=== PATIENT | female | born 1980 | race Caucasian/White ===

== ENCOUNTER 2021-01-31 10:56 | Day surgery (SDC) | payer OTHER ==
[~2021-01-31] VITALS: Ht 157.5 cm; Wt 54.5 kg
[~2021-01-31 10:56] MED LIST: AMBIEN10 MG PO; BUSPIRONE HCL10 MG PO; CIPRO500 MG PO; GABAPENTIN300 MG PO; WELLBUTRIN SR100 MG PO
--- NOTE | 2021-01-31 12:15 | NUR ---
01/31/21 1215 [address] 1205 PATIENT ARRIVES TO PACU AWAKE BUT VERY DROWSY. RESP EVEN AND UNLABORED, ROOM AIR SATS 100%. PATIENT C/O LEFT EYE WATERING. TISSUES AND COLD RAG GIVEN. 1210 PATIENT CONTINUES TO BE AWAKE, LESS DROWSY. CONTINUES TO C/O LEFT EYE WATERY. RUBBING AT EYE. LEFT EYE FLUSHED WITH SALINE. ENCOURAGED PATIENT NOT TO RUB EYES.
--- NOTE | 2021-02-01 13:17 | OR ---
[facility] [address] [place], [place] [address] Signed DATE OF OPERATION: 01/31/2021 SURGEON: Rina Bell MD PREOPERATIVE DIAGNOSES: 1. Recent episode of marked distention of stomach and small bowel without associated nausea or vomiting. 2. Chronic anxiety. 3. Possible irritable bowel syndrome. POSTOPERATIVE DIAGNOSIS: Normal colon and ilium. PROCEDURE: Total colonoscopy to cecum with intubation of ileum, biopsy of ileum, cecum and rectum. ANESTHESIA: Intravenous sedation, propofol infusion. Gurmeet Bradford CRNA. INDICATIONS: This 40-year-old white woman is a patient of PROSPER Foote and is referred for consideration of recent abnormal CT scan of the abdomen. Approximately three weeks ago, she had symptoms suggestive of a urinary tract infection with abdominal pain and cramps. Urinalysis was abnormal. She was treated for presumptive urinary tract infection. Left-sided abdominal pain was noted as well. This was January 10, 2021. Her urinalysis did show blood as well as elevated white count consistent with urinary tract infection. An abdominal CT scan was performed on January 11, 2021 to assess for nephrolithiasis. There was no evidence of hydronephrosis or stone, but a considerable amount of enteric bowel loop distention filled with fluid as well as the stomach, which was quite markedly dilated and filled with fluid. The colon itself was reasonably normal. Consideration was made, this represented an enteritis or possibly ileus. There is no specific finding of obstruction. The colon was relatively normal. I have seen her and most of her symptoms have resolved. As it turns out, she has considerable ongoing anxiety, which is treated, but exacerbated from time to time for which she does have some gastrointestinal symptoms including pain and occasions of diarrhea alternating with constipation. Clinical diagnosis of probable irritable bowel syndrome is made on that basis. I have recommended colonoscopy to assure that there is no evidence of ileal obstruction or findings of inflammatory bowel disease. The risks of bleeding, infection, and perforation were reviewed with her in detail. She Electronically Signed By: RINA BELL MD 02/01/21 1317 PATIENT NAME: TASHA SR OPERATIVE REPORT DATE OF : [birth year] REPORT #: [id number] PHYSICIAN: RINA BELL MD PCP: DEEPAK FALLON PAC REPORT IS CONFIDENTIAL AND NOT TO BE RELEASED WITHOUT AUTHORIZATION [facility] [address] [place], [place] [address] Signed understands and wished to proceed. Of note, she has had no COVID infection and preoperative COVID testing is negative. FINDINGS: The prep was excellent. Complete colonoscopy was undertaken to the cecum without question. Brief intubation of the ileum showed no sign of stricture or inflammatory change. A biopsy of the ileum and cecum and rectum was performed. The remaining colon was normal as was the rectum. DESCRIPTION OF PROCEDURE: The patient was brought to the endoscopy suite and placed in lateral decubitus position. Given her medication profile, anxiety, and so forth, propofol infusional anesthesia was given by the costume specialist. A digital rectal examination was found to be normal. An Olympus video colonoscope was passed in the rectum and manipulated throughout the colon ultimately intubating the cecum itself. The ileocecal valve and appendiceal orifice were normal. With various manipulations, the ileocecal valve was intubated. Passage very far was not forthcoming, biopsies were ultimately obtained and although limited in amount were sufficient. The ileal mucosa was normal. The scope was withdrawn and biopsies taken of the cecum, though it appeared normal as well. Careful withdrawal of scope showed no sign of specific abnormality. The biopsies taken of the rectum to assess for occult colitis. The scope was removed and the patient was taken to the recovery room in good condition. CONCLUDING DIAGNOSIS: Normal colon and ileum. PLAN: I have reviewed with the patient a low FODMAP diet, which she will initiate. We will see patient back in 6-8 weeks, sooner if symptoms should recur. MD LUANNE Eid/MODL /[id number] Electronically Signed By: RINA BELL MD 02/01/21 1317 PATIENT NAME: TASHA SR OPERATIVE REPORT DATE OF : [birth year] REPORT #: [id number] PHYSICIAN: RINA BELL MD PCP: DEEPAK FALLON PAC REPORT IS CONFIDENTIAL AND NOT TO BE RELEASED WITHOUT AUTHORIZATION [facility] [address] [facility] [place] [address] Signed cc: PROSPER Fotoe Copies: ~ Electronically Signed By: RINA BELL MD 02/01/21 1317 PATIENT NAME: ORINTASHA ANN OPERATIVE REPORT DATE OF : [birth year] REPORT #: [id number] PHYSICIAN: RINA BELL MD PCP: DEEPAK FALLON PAC REPORT IS CONFIDENTIAL AND NOT TO BE RELEASED WITHOUT AUTHORIZATION
--- NOTE | 2021-02-02 12:24 | PATH ---
[facility] [address] [place], [place] [address] Signed SPECIMEN(S): A CECUM BIOPSY SPECIMEN(S): B TERMINAL ILEUM BIOPSY SPECIMEN(S): C RECTUM BIOPSY SPECIMEN SOURCE: A. CECUM BIOPSY B. TERMINAL ILEUM BIOPSY C. RECTUM BIOPSY CLINICAL HISTORY: History of enteritis of small intestine, chronic diarrhea. Postop Dx: Normal MICROSCOPIC DESCRIPTION: Histologic sections of all submitted blocks are examined by light microscopy. These findings, together with the gross examination, support the pathologic diagnosis. FINAL PATHOLOGIC DIAGNOSIS: A. Colon, cecum, biopsy: - Colonic mucosa with no histopathologic abnormality. - Negative for active, chronic or microscopic colitis. - Negative for dysplasia or malignancy. B. Terminal ileum, biopsy: - Ileal mucosa with no histopathologic abnormality. - Negative for active inflammation or granulomas. - Negative for dysplasia or malignancy. C. Rectum, biopsy: - Rectal mucosa with no histopathologic abnormality. - Negative for active or chronic proctitis. - Negative for dysplasia or malignancy. NAL:cml:C2NR GROSS DESCRIPTION: Three specimens are received in three containers, labeled "Juan Yuliya." A. The specimen, labeled "Homar Martinezth, #1," and designated on the requisition "cecum biopsy," is received in formalin and consists of two richardson soft tissue fragment(s) that measure 0.1 and 0.4 cm in greatest dimension. The specimen is entirely submitted in cassette (A1). B. The specimen, labeled "Yuliya Martinez, #2," and designated on the requisition "terminal ileum biopsy," is received in formalin and consists of one richardson soft tissue fragment(s) that measure 0.3 cm in greatest dimension. The specimen is entirely submitted in cassette (B1). PATIENT NAME: YULIYA MARTINEZ PATHOLOGY DATE OF : 82 REPORT #: [id number] PHYSICIAN: NADIRA NASSAR PCP: DEEPAK FALLON PAC REPORT IS CONFIDENTIAL AND NOT TO BE RELEASED WITHOUT AUTHORIZATION [facility] [address] [place], [place] [address] Signed C. The specimen, labeled "Yuliya Martinez, #3," and designated on the requisition "rectum biopsy," is received in formalin and consists of three richardson soft tissue fragment(s) that measure 0.2-0.3 cm in greatest dimension. The specimen is entirely submitted in cassette (C1). FB (under the direct supervision of a pathologist) The Gross Description was prepared using a voice recognition system. The report was reviewed for accuracy; however, sound-alike word errors, addition and/or deletions may occur. If there is any question about this report, please contact Client Services. PERFORMING LABORATORY: The technical component was performed by [facility], [address] [place] [address] (Gaming Investigator: Cheri Philip MD; CLIA# [id number]). [facility], [address] [place] [address] (CLIA# [id number]). Diagnostician: Wendy Angel MD Pathologist Electronically Signed 02/02/2021 Copies: ~ PATIENT NAME: YULIYA MARTINEZ TRINI PATHOLOGY DATE OF : 82 REPORT #: [id number] PHYSICIAN: NADIRA PATHOLOGY PCP: DEEPAK FALLON PAC REPORT IS CONFIDENTIAL AND NOT TO BE RELEASED WITHOUT AUTHORIZATION
== END 2021-01-31 12:55 | disposition home or self-care (01) ==
LOC: OPS 10:56 → DS 11:15 → OPS 12:00 → DS 12:00 → OPS 12:55
PROVIDERS: ATTEND Surgery
PROC: 0DBP8ZX Excision of Rectum, Via Natural or Artificial Opening Endoscopic, Diagnostic (ICD-10-PCS; 2021-01-31)
PROC: 0DBB8ZX Excision of Ileum, Via Natural or Artificial Opening Endoscopic, Diagnostic (ICD-10-PCS; 2021-01-31)
PROC: 0DBH8ZX Excision of Cecum, Via Natural or Artificial Opening Endoscopic, Diagnostic (ICD-10-PCS; principal; 2021-01-31 12:00)
DX: K63.89 Other specified diseases of intestine (principal); K31.89 Other diseases of stomach and duodenum; F41.1 Generalized anxiety disorder; G47.00 Insomnia, unspecified
CPT/HCPCS: 00790; J7121

== ENCOUNTER 2021-04-07 06:30 | Day surgery (SDC) | payer OTHER ==
[~2021-04-07] VITALS: Ht 157.5 cm; Wt 54.5 kg
--- NOTE | 2021-04-07 08:35 | NUR ---
04/07/21 0835 Mary,Indy 0872 PT ARRIVED TO PACU ON 8L VIA MASK, RESP EVEN AND UNLABORED. VSS. PT NONAROUSABLE WITH ORAL AIRWAY IN PLACE.
[2021-04-07] MEDS ORDERED: IBUPROFEN600 MG PO (08:58)
[2021-04-07] MEDS ORDERED: ACETAMINOPHEN500 MG PO (08:59)
[2021-04-07] MEDS ORDERED: OXYCODON-ACETA1 EAC2 PO (08:59)
--- NOTE | 2021-04-07 12:01 | NUR ---
PT ALERT, ORIENTED AND WILL RETURN AFTER KIDS OFF TO SCHOOL. PT WAITING TO VISIT WITH DR BELL, SEEMS TO BE DEALING APPROPRIATELY WITH TODAY. ALL QUESTIONS ASKED ANSWERED. PT REQUESTED PRAYER, WILL FOLLOW
--- NOTE | 2021-04-09 11:25 | OR ---
[facility] [address] [place], [place] [address] Signed DATE OF OPERATION: 04/07/2021 SURGEON: Rina Bell MD PREOPERATIVE DIAGNOSES: 1. Symptomatic right infrascapular soft tissue mass, probable lipoma. 2. Symptomatic right lateral chest wall soft tissue mass, probable lipoma. POSTOPERATIVE DIAGNOSES: 1. Submuscular (trapezius) soft tissue mass inferior to the tip of scapula consistent with lipoma 8 cm in size. 2. Right subfascial lateral chest wall lipomatous mass. PROCEDURES: 1. Excision of submuscular and intermuscular soft tissue mass, right posterior thorax. 2. Excision of subfascial soft tissue mass, right lateral chest wall. ANESTHESIA: General, LMA, Gurmeet Sanchez, DRYWALLER and local 20 mL of 0.25% Marcaine with epinephrine. INDICATIONS: This 40-year-old white woman is a patient of PROSPER Castañeda, and known to me from the past for treatment of probable irritable bowel syndrome. She has noticed a soft tissue mass inferior to the right scapular area, which was flat and relatively large and increasingly uncomfortable for her. It was clinically suggestive of a submuscular lipoma. In addition, she has a left lateral abdominal wall soft tissue mass consistent with a lipoma and as outlined today prior to operation, a right lateral chest wall subcutaneous mass also consistent with lipoma. She is admitted at this time to undergo excision of the right posterior and rioght lateral thoracic soft tissue masses. She understands the risks of bleeding, infection, cosmetic deformity, recurrence, and need for additional treatment should malignancy be found. She understands and she wished to proceed. As regard to the abdominal wall mass on the right side, she is not inclined to excision of that today. FINDINGS: Both masses were consistent with benign lipomatous masses. Both were excised completely. The right lateral chest wall mass was a subfascial lesion approximately 3 cm in size. The posterior thoracic lesion inferior to the scapular tip was a submuscular (trapezius) lipomatous mass intercolated between the trapezius and Electronically Signed By: RINA BELL MD 04/09/21 1125 PATIENT NAME: TASHA SR OPERATIVE REPORT DATE OF : [birth year] REPORT #: [id number] PHYSICIAN: RINA BELL MD PCP: DEEPAK FALLON PAC REPORT IS CONFIDENTIAL AND NOT TO BE RELEASED WITHOUT AUTHORIZATION [facility] [address] [place], [place] [address] Signed latissimus dorsi muscle. Complete excision was accomplished. DESCRIPTION OF PROCEDURE: The patient was brought to the operating room, given a general LMA type anesthetic and placed in lateral decubitus position with right side up. Shoulder roll was placed. Appropriate padding of all pressure points was undertaken including between the legs and arms and so on. The previously marked lesions were prepared with a chlorhexidine solution in continuity. Skin lines of tension over the right lateral chest wall lesion was transversely oriented and a #15 blade was used to incise the skin and subcutaneous tissue. Using blunt dissection with a hemostat, the subfascial layer was identified, ultimately identifying what was most likely a smooth, well-formed lipomatous mass down to the chest wall itself. This was carefully dissected free mostly with electrocautery. Hemostasis was assured with electrocautery. A 3 mL of 0.25% Marcaine with epinephrine injected locally. The deep dermal layer was reapproximated with interrupted 2-0 Vicryl and skin closed with a running subcuticular 3-0 Vicryl. Attention was turned to the posterior thoracic soft tissue mass, this was quite a bit larger. Orientation of the incision was based on skin line tension essentially vertically oriented in this area. An incision was made with a 15 blade. Dissection carried through the dermis and subcutaneous tissue. Electrocautery was used for hemostasis. Further dissection was undertaken showing that the mass was a lipomatous one and blunt and electrocautery dissection surrounding it was undertaken. It was found to emanate between the trapezius muscle and the latissimus dorsi muscle. Extreme care was taken to excise it fully between these two muscles leading no remnant. Incision used was quite a bit smaller than the actual lesion excised. Photographs were taken. The excised lesion was multi-lobulated fatty tissue consistent with lipoma. It measured approximately 8-9 cm. Hemostasis was assured with electrocautery. Irrigation was undertaken. A 15 mL of 0.25% Marcaine with epinephrine injected locally. The wound was closed with interrupted 2-0 Vicryl in a running subcuticular and 3-0 Vicryl for the skin. Steri-Strips were applied to both sites. Acticoat dressings were then applied. She was returned to the supine position, ultimately extubated and transferred to recovery room in good condition and having suffered no complication. Sponge, needle, and instrument counts reported as correct x3. Rina Bell MD Electronically Signed By: RINA BELL MD 04/09/21 1125 PATIENT NAME: TASHA SR TRINI OPERATIVE REPORT DATE OF : [birth year] REPORT #: [id number] PHYSICIAN: RINA BELL MD PCP: DEEPAK FALLON PAC REPORT IS CONFIDENTIAL AND NOT TO BE RELEASED WITHOUT AUTHORIZATION [facility] [address] [place] [address] Signed /[facility] /[id number] Copies: ~ Electronically Signed By: RINA BELL MD 04/09/21 1125 PATIENT NAME: TASHA SR TRINI OPERATIVE REPORT DATE OF : 82 REPORT #: [id number] PHYSICIAN: RINA BELL MD PCP: DEEPAK FALLON PAC REPORT IS CONFIDENTIAL AND NOT TO BE RELEASED WITHOUT AUTHORIZATION
== END 2021-04-07 10:10 | disposition home or self-care (01) ==
LOC: DS 06:30 → MS 06:45 → DS 10:10 → MS 11:00 → EDSTATUS 11:00 → DS 11:00
PROVIDERS: ATTEND Surgery
PROC: 0KBF0ZZ Excision of Right Trunk Muscle, Open Approach (ICD-10-PCS; 2021-04-07)
PROC: 0JB63ZZ Excision of Chest Subcutaneous Tissue and Fascia, Percutaneous Approach (ICD-10-PCS; principal; 2021-04-07 06:45)
DX: R22.2 Localized swelling, mass and lump, trunk (principal); D21.3 Benign neoplasm of connective and other soft tissue of thorax; Z88.1 Allergy status to other antibiotic agents; Z88.0 Allergy status to penicillin
CPT/HCPCS: 00400; J1100; J1644; J1885; J2001; J2405; J2704; J3010; J7121

== ENCOUNTER 2021-08-15 05:47 | Day surgery (SDC) | payer OTHER ==
[~2021-08-15] VITALS: Ht 157.5 cm; Wt 58.1 kg
--- NOTE | ~2021-08-15 | OR ---
[facility] [address] [place], [place] [address] Draft DATE OF OPERATION: 08/15/2021 SURGEON: Elma Almeida DO PREOPERATIVE DIAGNOSES: 1. CIN3 with positive margins. 2. Adenomyosis. POSTOPERATIVE DIAGNOSES: 1. CIN3. 2. Adenomyosis. PROCEDURES PERFORMED: 1. Total laparoscopic hysterectomy. 2. Bilateral salpingectomy. 3. Cystoscopy. BEHAVIORAL SPECIALIST: Peter Wallace MD. ANESTHESIA: General. ESTIMATED BLOOD LOSS: 35 mL. SPECIMEN: Uterus, cervix, and bilateral fallopian tubes. DRAINS: Corcoran to gravity. FINDINGS: Normal external genitalia with normal clitoris, urethral meatus, bilateral Cecilia's, and Bartholin's. Enlarged cervix with scarring consistent with prior LEEP and no cervical masses noted. Normal uterus, tubes, and ovaries on laparoscopy with normal liver and gallbladder noted. On cystoscopy, normal bladder and bilateral ureteral jets. Good apical support. Hemostasis at the end of the procedure. Of note, the urine was noted to be quite turbid at the beginning of the case. PATIENT NAME: TASHA MARTINEZ OPERATIVE REPORT DATE OF : 82 REPORT #: [id number] PHYSICIAN: ELMA ALMEIDA DO PCP: DEEPAK FALLON PAC REPORT IS CONFIDENTIAL AND NOT TO BE RELEASED WITHOUT AUTHORIZATION [address] [address] [place] COMPLICATIONS: None. INDICATIONS: Ms. Martinez is a very pleasant 41-year-old G5, P3 female with a history of cervical dysplasia. She underwent a LEEP for CIN3 that demonstrated positive endocervical margins both on LEEP and top-hat portions of the biopsy. ECC was negative. She has a history of adenomyosis and has completed childbearing. She reports significant anxiety and PTSD type symptoms regarding colposcopy and LEEP and is requesting definitive treatment of cervical dysplasia with total laparoscopic hysterectomy, bilateral salpingectomy and cystoscopy. Risks, benefits, and alternatives were discussed in detail with the patient. The patient understands and wished to proceed with the procedure. TECHNIQUE: The patient was taken to the operating room where a time-out was performed to confirm correct patient, correct procedure. General anesthesia was adequately established. The patient was prepped and draped in dorsal lithotomy position with her feet in Yellofin stirrups. ICPs were on and running and no preoperative heparin was indicated based on her preemie score. The patient received clindamycin and aztreonam preoperatively per SCIP protocol due to her allergy history. A weighted speculum was placed in the vagina and the anterior lip of the cervix was grasped with an Allis clamp. The cervix was serially dilated using Hegar dilators and a VCare uterine manipulator was placed. Corcoran catheter was inserted and the surgeon's gloves were changed. Attention was turned to the abdomen. The base of the umbilicus was infiltrated with 0.25% Marcaine with epinephrine and a 5 mm stab incision was made using 11 blade. A 5 mm port was then placed under direct visualization without difficulty and pneumoperitoneum was established with low opening pressures. Survey of the abdomen and pelvis was performed that demonstrates normal right upper quadrant, normal uterus, bilateral tubes and ovaries. A 5 mm assist port was then placed in left lower quadrant under direct visualization and a 10 mm assist port was placed in the right lower quadrant under direct visualization. The left fallopian tube was grasped at the fimbriated end and divided along the mesosalpinx using LigaSure device. The fallopian tube was then delivered through the and sent to pathology for further evaluation. The left uteroovarian ligament was fulgurated and divided. The right fallopian tube was then divided along the mesosalpinx using the LigaSure device and sent to pathology. The right utero-ovarian ligament was then fulgurated and divided. The left round ligament was fulgurated and divided and the leaves of the broad ligament were divided. The anterior leaf was carried down to the vaginal cup and the bladder dissected well below the vaginal cup. The posterior leaf was carried down to the angle of the uterosacral ligament across the posterior edge of the vaginal cup. The uterine vessels were identified, fulgurated and divided with excellent hemostasis. The process was repeated PATIENT NAME: TASHA MARTINEZ OPERATIVE REPORT DATE OF : 82 REPORT #: [id number] PHYSICIAN: ELMA ALMEIDA DO PCP: DEEPAK FALLON PAC REPORT IS CONFIDENTIAL AND NOT TO BE RELEASED WITHOUT AUTHORIZATION [facility] [address] [place] [id number] [place] on the right with fulguration division of the round ligament, leaves of the broad ligament and uterine vessels with excellent hemostasis appreciated. Sonicision device was selected and colpotomy was performed in a circumferential manner around the of the green vaginal cup with excellent hemostasis. The uterus and cervix were then delivered through the vagina and a wet lap stuffed inside a glove was placed inside the vagina to maintain pneumoperitoneum. The pelvis was irrigated and found to be hemostatic. Colpotomy was then closed using Endostitch device with V-Loc suture with careful attention to incorporate the uterosacral ligaments bilaterally and the vaginal epithelium with each bite. Once colpotomy was closed, excellent hemostasis and apical support were appreciated. The pelvis was again irrigated and found to be hemostatic. Tisseel was applied to the raw edges of the pedicle sites again with excellent hemostasis. The 10 mm assist port was then removed and fascia was closed using Morro-Edouard device with excellent reapproximation of the fascia. Pneumoperitoneum was then reduced and trocars were removed. Trocar sites were repaired using 4-0 Monocryl in subcuticular stitch with excellent hemostasis cosmesis. Attention was then turned to cystoscopy. The Corcoran catheter was removed and a 70-degree cystoscope was then placed in the urethral meatus and advanced under direct visualization to the bladder. The bladder was filled and normal bladder dome and bladder epithelium was appreciated. Bilateral ureteral jets were appreciated. Bladder was drained. Corcoran catheter was reinserted and the patient was taken to PACU in good and stable condition. Sponge, needle, and instrument counts were correct x2 at the end of the procedure. Dr. Wallace was present and participated in all portions of the procedure. DO ALESHIA Conley/AMADOU /[id number] Copies: ~ PATIENT NAME: TASHA MARTINEZ OPERATIVE REPORT DATE OF : [birth year] REPORT #: [id number] PHYSICIAN: ELMA ALMEIDA DO PCP: DEEPAK FALLON PAC REPORT IS CONFIDENTIAL AND NOT TO BE RELEASED WITHOUT AUTHORIZATION
[~2021-08-15 05:47] MED LIST changes: +ACETAMINOPHEN500 MG PO; +IBUPROFEN600 MG PO; +OXYCODON-ACETA1 EAC2 PO; +VITAMIN B-1250 MCG PO; +VITAMIN B122500 MCG PO
[2021-08-15] MEDS ORDERED: MULTI-VITAMIN1 EACH PO (06:07)
--- NOTE | 2021-08-15 09:04 | NUR ---
08/15/21 0904 Alise Juarez 0853-PT TO PACU IN SUPINE POSITION. EYES CLOSED WITH ORAL AIRWAY IN PLACE. BREATHING EASY AND UNLABORED. SPO2 >95% ON 6 L O2 VIA SIMPLE MASK. 0856- PT RESPONDS TO VERBAL AND TACTILE SIMULI. OPENS EYES AND FOLLOWS COMMANDS. ORAL AIRWAY REMOVED. BREATHING EASY AND UNLABORED. SPO2 >95% ON 6 L O2 VIA SIMPLE MASK. O2 TITRATED DOWN TO ROOM AIR. PT SHAKES HEAD "NO" WHEN ASKED ABOUT PAIN. 0904- PT AWAKENS SPONTANEOUSLY, BUT REMAINS DROWSY. PT ASKING ABOUT SPOUCE AND PROCEDURE. BREATHING EASY AND UNLABORED. SPO2 >95% ON ROOM AIR.
--- NOTE | 2021-08-15 09:44 | NUR ---
0930: PT RETURNS TO UNIT VIA STRETCHER FROM PACU, DROWSY AND TEARFUL ON ARRIVAL. ATTENTIVE AT THE BEDSIDE. VSS, RESP EVEN AND UNLABORED. PT REPORTING VENKATESH 3/10 PAIN LEVEL AT THIS TIME, DISCUSSED PAIN CONTROL AND PT VOICES UNDERSTANDING. TO TRY WATER AND CRACKERS SHORTLY. DENIES NAUSEA. DRESSINGS X3 C/D/I. ROSAS DRAINS CLOUDY YELLOW URINE AT THE BEDSIDE. SCDS INPLACE. POC DISCUSSED AND PT AGREEABLE. MORRISON, DO TO COME DISCUSS PROCEDURE WITH PT AND PT'S PRIOR TO DC. NO NEEDS VOICED, CALL LIGHT WITHIN REACH 1000: TC PLACED TO MORRISON, DO. NEW ORDER RECEIVED FOR URINE CULTURE. TC PLACED TO LAB AND ACCURACY OF CULTURE WITH THE PRESENCE OF FLUORESCENE CONFIRMED. THIS RN TO SEND CULTURE WHEN AVAILABLE.
--- NOTE | 2021-08-15 10:16 | NUR ---
1010/PT IS ALERT AND ORIENTED. PT IS TEARFUL. VOICED NEED FOR MORE TISSUE. DICUSSED NEED FOR COMFORT. OFFERED BY THIS STUDENT NURSE. PT DECLINES DESIRE TO VOICE FEELINGS AT THIS TIME. CALL LIGHT WITHIN REACH AND REMAINS AT BEDSIDE.
--- NOTE | 2021-08-15 10:59 | NUR ---
1050/PT IS AWAKE AND ORIENTED. VSS. SCD'S IN PLACE. PT REPORTS PAIN LEVEL 3 BUT IS TOLERABLE AND VOICES NO NEED FOR PAIN INTERVENTION AT THIS TIME. LAP SITES X2 MILD RED DRAINAGE. LAP SIT X1 MODERATE RED DRAINAGE. REMAINS AT BEDSIDE AND CALL LIGHT IS WITHING REACH. SALINE LOCK ON IV BY THIS STUDENT NURSE.
--- NOTE | 2021-08-15 12:10 | NUR ---
1140/PT IS AWAKE AND OREINTED. VSS. PT VOICES PAIN LEVEL 5 AND REQUESTS PAIN INTERVENTION. PAIN RX BY ZOE BAKER. SEE EMAR. PT DENIES NAUSEA. LUNCH OFFERED, PT DECLINES. LAP SITE X2 MILD RED DRAINAGE (L/R) LAP SITE X 1 MODERATE RED DRAINAGE (MIDDLE). URINE CULTURE COLLECTED. CATH DRAINED 400 ML CLOUDY YELLOW URINE. CATH DC'D BY THIS STUDENT NURSE. ICE WATER REFILLED. CALL LIGHT WITHIN REACH. REAMAINS AT BEDSIDE. NO NEEDS VOICED AT THIS TIME.
--- NOTE | 2021-08-15 12:44 | NUR ---
1245/PT ALERT AND ORIENTED. VSS. PT DENIES NAUSEA AND PAIN HAS SUBSIDED WITH RX. DRESSING REMAIN THE SAME LAP SITE X2 MILD RED DRAINAGE. LAP SITE X 1 MODERATE RED DRAINAGE. NO NEED TO REINFORCE AT THIS TIME. SCD'S IN PLACE. PT VOICES DESIRE TO USE THE RESTROOM. PT AMBULATES TO RESTROOM WITH THIS STUDENT NURSE ASSIST. PT AMBULATES BACK TO BED. PT VOICES DESIRE TO GO HOME. REMAINS AT BEDSIDE. CALL LIGHT WITHIN REACH.
--- NOTE | 2021-08-22 10:01 | PATH ---
[facility] [address], [place] [address] Signed SPECIMEN(S): A UTERUS, CERVIX, BILAT FALLOPIAN TUBES SPECIMEN SOURCE: A. UTERUS, CERVIX, BILAT FALLOPIAN TUBES CLINICAL HISTORY: STEVEN 3 with severe dysphagia, adenomyosis. TLH, BS, cysto. FINAL PATHOLOGIC DIAGNOSIS: Uterus, cervix, bilateral fallopian tubes, hysterectomy with bilateral salpingectomy: - STEVEN 3 (severe dysplasia), present in the 12-3 and 9-12 o'clock quadrants. - The ectocervical margin is free of dysplasia. - Uterus with weakly proliferative endometrium and adenomyosis. - Fallopian tubes within normal limits. - Paratubal cysts. TWK:caw:C2NR MICROSCOPIC EXAMINATION: The specimen consists of cervical tissue in which there is transition zone present. Atypical squamous cells with a stratification pattern of STEVEN 3 are present. There is nuclear hyperchromasia, a high N:C ratio, nuclear membrane irregularity, and mitotic activity. STEVEN extends into the deep endocervical glands in these sections. Invasive carcinoma is not seen. GROSS DESCRIPTION: The specimen, labeled "EK, uterus, cervix, bilateral fallopian tubes," is received in formalin and consists of a uterus and cervix with and undesignated fallopian tubes. Uterus measures 5.5 x 4.3 x 7.8 cm. Serosal surface is pink-richardson, smooth. The uterus weighs 122 grams. The ectocervix is pink-richardson, smooth and measures 4.0 x 4.3 cm. The cervical neck is inked. Sectioning through the cervix reveals pink-richardson, homogenous tissue. The endometrial cavity measures 3.0 x 2.2 cm. It is lined with pink-red, smooth endometrium. Sectioning through the myometrium reveals a trabeculated surface and one cystic defect that measures 0.1 cm in diameter. Cystic defect is filled with a hemorrhagic fluid. The myometrium measures 2.9 cm in thickness. The endometrium measures up to 0.1 cm in thickness. PATIENT NAME: TASHA SR PATHOLOGY DATE OF : 82 REPORT #: [id number] PHYSICIAN: NADIRA NASSAR PCP: DEEPAK FALLON PAC REPORT IS CONFIDENTIAL AND NOT TO BE RELEASED WITHOUT AUTHORIZATION [facility] [address], [place] [address] Signed Both fallopian tubes show fimbria and violaceous and smooth serosa. The first fallopian tube measures 6 cm in length and 0.8 cm in diameter. The second fallopian tube measures 5 cm in length and 0.8 cm in diameter. Sectioning through both fallopian tubes is grossly unremarkable. Entire cervix is submitted in 19 cassettes due to patient history. Cassette Summary: (A1-A4) Cervix 12 to 3 o'clock, entirely submitted (A5-A9) Cervix, 3 to 6 o'clock (A10-A14) Cervix, 6 to 9 o'clock (A15-A19) Cervix, 9 to 12 o'clock (A20) Endomyometrium, loss prevention representative sections (A21) Myometrium with cystic defect, loss prevention representative section (A22) First fallopian tube, loss prevention representative sections (A23) Second fallopian tube, loss prevention representative sections JS (under the direct supervision of a pathologist) The Gross Description was prepared using a voice recognition system. The report was reviewed for accuracy; however, sound-alike word errors, addition and/or deletions may occur. If there is any question about this report, please contact Client Services. PERFORMING LABORATORY: The technical component was performed by [facility], [address] [place] [id number] ([facility]: Cheri Philpi MD; CLIA# [id number]). The professional interpretation was performed by [facility], [facility], [address] [place] [address]. Diagnostician: Mervin Tsai MD Pathologist Electronically Signed 08/22/2021 Copies: ~ PATIENT NAME: TASHA SR TRINI PATHOLOGY DATE OF : 82 REPORT #: [id number] PHYSICIAN: NADIRA NASSAR PCP: DEEPAK FALLON PAC REPORT IS CONFIDENTIAL AND NOT TO BE RELEASED WITHOUT AUTHORIZATION
== END 2021-08-15 13:45 | disposition home or self-care (01) ==
LOC: DS 05:47
PROVIDERS: ATTEND Obstetrics & Gynecology
PROC: 0UT74ZZ Resection of Bilateral Fallopian Tubes, Percutaneous Endoscopic Approach (ICD-10-PCS; 2021-08-15)
PROC: 0UT94ZZ Resection of Uterus, Percutaneous Endoscopic Approach (ICD-10-PCS; principal; 2021-08-15 06:45)
DX: D06.0 Carcinoma in situ of endocervix (principal); N80.0 Endometriosis of uterus; N83.8 Other noninflammatory disorders of ovary, fallopian tube and broad ligament; Z88.1 Allergy status to other antibiotic agents; Z88.0 Allergy status to penicillin; Z86.16 Personal history of COVID-19
CPT/HCPCS: 36415; 85025; 86850; 86900; 86901; 87088; J0131; J1100; J1885; J2405; J2704; J3010; J3475; J3490; J7121

== ENCOUNTER 2023-06-10 12:30 | Emergency (ER) | payer OTHER ==
[~2023-06-10] VITALS: Ht 157.5 cm; Wt 57.7 kg
[~2023-06-10 12:30] MED LIST changes: +MULTI-VITAMIN1 EACH PO
[2023-06-10] MEDS ORDERED: ATOMOXETINE HC100 MG PO (13:28)
[2023-06-10 14:26] VITALS: BP 113/79
== END 2023-06-10 14:26 | disposition home or self-care (01) ==
LOC: ED 12:30
DX: M79.652 Pain in left thigh (principal); Z88.0 Allergy status to penicillin; Z88.1 Allergy status to other antibiotic agents; Z79.899 Other long term (current) drug therapy
CPT/HCPCS: 99283

== ENCOUNTER 2023-06-20 12:02 | Day surgery (SDC) | payer OTHER ==
[~2023-06-20] VITALS: Ht 157.5 cm; Wt 55.9 kg
[~2023-06-20 12:02] MED LIST changes: +ATOMOXETINE HC100 MG PO
[2023-06-20 12:18] VITALS: BP 116/71
--- NOTE | 2023-06-20 14:04 | NUR ---
06/20/23 1404 Mary Houston 1351 PT ARRIVED TO PACU. SLEEPY BUT AROUSABLE. MAINTAINING SAO2 > 90% ON RA.
[2023-06-20 14:19] VITALS: BP 105/57
--- NOTE | 2023-06-22 10:03 | OR ---
[facility] [address] [place] [place], [place] [address] Signed DATE OF OPERATION: 06/20/2023 SURGEON: Rina Bell MD PREOPERATIVE DIAGNOSES: 1. Episodic rectal bleeding. 2. Normal-appearing colon in 2020. POSTOPERATIVE DIAGNOSES: 1. Normal-appearing colon and ilium. 2. Internal hemorrhoidal changes. PROCEDURE: Total colonoscopy to cecum with intubation of the ileum and biopsies of ileum, colon and rectum. ANESTHESIA: Intravenous sedation; fentanyl 200 mcg and Versed 8 mg. INDICATION: This 43-year-old woman is a patient of Deepak Fallon. She underwent colonoscopy by me in 2020, showing no sign of inflammation, polyp, or malignancy. Biopsies of the ileum were accomplished which were normal also. At that time, she was having diarrhea. She is self described as having "irritable bowel." She more recently has had two episodes of rectal bleeding, one in January and the other later. Her bleeding was not profound. She has prior history of hysterectomy for cervical dysplasia and no anorectal problems otherwise. She has no pain on defecation. She does have underlying anxiety for which she takes buspirone, bupropion, gabapentin, Ambien, and Strattera. She is admitted at this time to undergo colonoscopy to better characterize her problem. She understands the risk of bleeding, infection, and perforation. FINDINGS: Her prep was quite excellent. Complete colonoscopy was undertaken of the cecum with intubation of the ileum at least 10 cm. The ileum and colon appeared normal except for the rectum, which on retroflexed view did show internal hemorrhoidal change. DESCRIPTION OF PROCEDURE: The patient was brought to the endoscopy suite and placed in the lateral decubitus Electronically Signed By: RINA BELL MD 06/22/23 1003 PATIENT NAME: TASHA SR OPERATIVE REPORT DATE OF : 82 REPORT #: [id number] PHYSICIAN: RINA BELL MD PCP: DEEPAK FALLON PAC REPORT IS CONFIDENTIAL AND NOT TO BE RELEASED WITHOUT AUTHORIZATION [facility] [address] [place], [place] [address] Signed position, given intravenous sedation to the point of slurred speech and nystagmus. Full cardiopulmonary monitoring was maintained. An Olympus video colonoscope was passed in the rectum after normal anorectal examination. She did have discomfort in the sigmoid area concurrent to medication intolerance and probably underlying irritable bowel issues. Additional sedation was given as needed. The scope was ultimately advanced to the cecum. The ileocecal valve and appendiceal orifice were normal. The scope was insinuated into the terminal ileum and passed for at least 6 to 8 cm. It was normal. Biopsies were obtained and the scope was then withdrawn and biopsies taken of the cecum. Careful withdrawal of scope showed no sign of specific abnormality, polyps, diverticular formation, colitis, or cancer. Biopsies were taken of the transverse colon, left colon, sigmoid and rectum. Retroflexed view of the rectum did demonstrate some internal hemorrhoidal changes, not currently problematic. The scope was straightened and withdrawn and the patient was taken to the recovery room in good condition. CONCLUDING DIAGNOSIS: Likely her bleeding was related to internal hemorrhoidal changes. PLAN: We will recommend a high-fiber diet and a fiber supplement, Citrucel one scoop daily. If she should have recurrent bleeding, I would advise her to give me a call at which point, hemorrhoidal banding could be undertaken in the office setting. MD LUANNE Eid/SHRUTHIL /[id number] cc: PROSPER Foote Copies: ~ Electronically Signed By: RINA BELL MD 06/22/23 1003 PATIENT NAME: SRTASHA ANN OPERATIVE REPORT DATE OF : [birth year] REPORT #: [id number] PHYSICIAN: RINA BELL MD PCP: DEEPAK FALLON PAC REPORT IS CONFIDENTIAL AND NOT TO BE RELEASED WITHOUT AUTHORIZATION
--- NOTE | 2023-06-26 13:40 | PATH ---
[facility] [place] [facility] [address] [facility] [place], [place] [address] Signed SPECIMEN(S): A CECUM COLON BIOPSY SPECIMEN(S): B TERMINAL ILEUM BIOPSY SPECIMEN(S): C TRANSVERSE COLON BIOPSY SPECIMEN(S): D DESCENDING/LEFT COLON BIOPSY SPECIMEN(S): E SIGMOID COLON BIOPSY SPECIMEN(S): F RECTUM BIOPSY SPECIMEN SOURCE: A. CECUM COLON BIOPSY B. TERMINAL ILEUM BIOPSY C. TRANSVERSE COLON BIOPSY D. DESCENDING/LEFT COLON BIOPSY E. SIGMOID COLON BIOPSY F. RECTUM BIOPSY CLINICAL HISTORY: History of IBS with diarrhea, rectal bleeding FINAL PATHOLOGIC DIAGNOSIS: A. Cecum colon biopsy: - Benign colonic mucosa, negative for specific diagnostic abnormality. B. Terminal ileum biopsy: - Benign small bowel-type mucosa, negative for specific diagnostic abnormality. C. Transverse colon biopsy: - Benign colonic mucosa, negative for specific diagnostic abnormality. D. Descending/left colon biopsy: - Benign colonic mucosa, negative for specific diagnostic abnormality. E. Sigmoid colon biopsy: - Benign colonic mucosa, negative for specific diagnostic abnormality. F. Rectum biopsy: - Benign colonic mucosa, negative for specific diagnostic abnormality. JVR:smn MICROSCOPIC EXAMINATION: Histologic sections of all submitted blocks are examined by light microscopy. These findings, together with the gross examination, support the pathologic diagnosis. GROSS DESCRIPTION: A. The specimen, labeled and designated "Noris Martinez, " and designated on the PATIENT NAME: TASHA MARTINEZ TRINI PATHOLOGY DATE OF : 82 REPORT #: [id number] PHYSICIAN: NADIRA NASSAR PCP: DEEPAK FALLON PAC REPORT IS CONFIDENTIAL AND NOT TO BE RELEASED WITHOUT AUTHORIZATION [facility] [address] [place], [place] [address] Signed requisition "colon, cecum biopsy," is received in formalin and consists of two richardson-white soft tissue fragments measuring 0.4 to 0.5 cm, both specimens are submitted entirely in (A1). B. The specimen, labeled and designated "Martinez, E, " and designated on the requisition "terminal ileum biopsies," is received in formalin and consists of two richardson soft tissue fragments measuring 0.4 to 0.6 cm, both specimens are submitted entirely in (B1). C. The specimen, labeled and designated "Martinez, E, " and designated on the requisition "colon, transverse biopsy," is received in formalin and consists of one richardson soft tissue fragment measuring 0.9 cm, the specimen is submitted entirely in (C1). D. The specimen, labeled and designated "Martinez, E, " and designated on the requisition "colon, descending/left biopsy," is received in formalin and consists of two richardson soft tissue fragment measuring 0.3 to 0.4 cm, both specimens are submitted entirely in (D1). E. The specimen, labeled and designated "Martinez, E, " and designated on the requisition "colon, sigmoid biopsy," is received in formalin and consists of two richardson-white soft tissue fragments measuring 0.5 to 0.8 cm, both specimens are submitted entirely in (E1). F. The specimen, labeled and designated "Martinez, E, " and designated on the requisition "colon, rectum biopsy," is received in formalin and consists of four richardson soft tissue fragments measuring 0.2 to 0.4 cm, all specimens are submitted entirely in (F1). MMA (under the direct supervision of a pathologist) The Gross Description was prepared using a voice recognition system. The report was reviewed for accuracy; however, sound-alike word errors, addition and/or deletions may occur. If there is any question about this report, please contact Client Services. PERFORMING LABORATORY: Technical component was performed by [facility], [address] [place] [id number] (CLIA# [id number]). Professional interpretation was performed by [facility] - [facility], [address] [place] [id number] (CLIA#: [id number]). Diagnostician: Prakash Ann MD Pathologist Electronically Signed 06/26/2023 Copies: PATIENT NAME: TASHA MARTINEZ TRINI PATHOLOGY DATE OF : [birth year] REPORT #: [id number] PHYSICIAN: NADIRA NASSAR PCP: DEEPAK FALLON PAC REPORT IS CONFIDENTIAL AND NOT TO BE RELEASED WITHOUT AUTHORIZATION [facility] [address] [facility] [place] [address] Signed ~ PATIENT NAME: TASHA MARTINEZ TRINI PATHOLOGY DATE OF : [birth year] REPORT #: [id number] PHYSICIAN: NADIRA NASSAR PCP: DEEPAK FALLON PAC REPORT IS CONFIDENTIAL AND NOT TO BE RELEASED WITHOUT AUTHORIZATION
== END 2023-06-20 14:31 | disposition home or self-care (01) ==
LOC: DS 12:02 → OPS 12:02 → DS 13:00 → OPS 13:00
PROVIDERS: ATTEND Surgery
PROC: 0DBL8ZX Excision of Transverse Colon, Via Natural or Artificial Opening Endoscopic, Diagnostic (ICD-10-PCS; 2023-06-20)
PROC: 0DBN8ZX Excision of Sigmoid Colon, Via Natural or Artificial Opening Endoscopic, Diagnostic (ICD-10-PCS; 2023-06-20)
PROC: 0DBP8ZX Excision of Rectum, Via Natural or Artificial Opening Endoscopic, Diagnostic (ICD-10-PCS; 2023-06-20)
PROC: 0DBB8ZX Excision of Ileum, Via Natural or Artificial Opening Endoscopic, Diagnostic (ICD-10-PCS; 2023-06-20)
PROC: 0DBM8ZX Excision of Descending Colon, Via Natural or Artificial Opening Endoscopic, Diagnostic (ICD-10-PCS; 2023-06-20)
PROC: 0DBH8ZX Excision of Cecum, Via Natural or Artificial Opening Endoscopic, Diagnostic (ICD-10-PCS; principal; 2023-06-20 13:00)
DX: K64.8 Other hemorrhoids (principal); K62.5 Hemorrhage of anus and rectum; K58.0 Irritable bowel syndrome with diarrhea; D17.1 Benign lipomatous neoplasm of skin and subcutaneous tissue of trunk; Z88.0 Allergy status to penicillin; Z88.1 Allergy status to other antibiotic agents; Z79.899 Other long term (current) drug therapy
CPT/HCPCS: 99153; G0500; J2250; J3010